=== PATIENT | female | born 1980 | race Asian ===

== ENCOUNTER 2019-02-07 06:44 | Emergency (ER) | payer BC ==
--- NOTE | 2019-02-07 09:29 | ER Document Report ---
ED General - General Chief Complaint: Leg Pain Stated Complaint: BILATERAL CALF PAIN Time Seen by Provider: 02/07/19 09:13 TRAVEL OUTSIDE OF THE [place] IN LAST 30 DAYS: No - HPI Notes: Patient is a 38-year-old female no significant past medical history who presents complaining of right worse than left calf pain after being on a plane for 18 hours and arriving last night at 10 PM. Patient states that she was fairly active during her vacation. Patient has noticed her right leg being a little more swollen than the left as well. Pain does not radiate. Denies drug allergies. She is able to eat and drink without difficulty. She is urinating normally. No recent illness. No known insect bite. Denies any headache, fever, neck pain, URI, sore throat, chest pain, palpitations, syncope, cough, shortness of breath, wheeze, dyspnea, abdominal pain, nausea/vomiting/diarrhea, urinary retention, dysuria, hematuria, loss of control of bowel or bladder, numbness/tingling, saddle anesthesia, muscle paralysis/weakness, or rash. Denies any recent surgery/trauma, personal cancer history, hormone use, smoking, or previous DVT/PE. - Related Data Allergies/Adverse Reactions: No Known Allergies Allergy (Verified 02/16/17 14:16) Home Medications: doxycycline 100 mg qday; multivit, flonase, claritin Past Medical History - Social History Smoking Status: Never Smoker Family History: Reviewed & Not Pertinent Patient has suicidal ideation: No Patient has homicidal ideation: No - Past Medical History Cardiac Medical History: Denies: Hx Coronary Artery Disease, Hx Heart Attack, Hx Hypertension Pulmonary Medical History: Denies: Hx Asthma, Hx Bronchitis, Hx COPD, Hx Pneumonia Neurological Medical History: Denies: Hx Cerebrovascular Accident, Hx Seizures Renal/ Medical History: Denies: Hx Peritoneal Dialysis Musculoskeletal Medical History: Denies Hx Arthritis Past Surgical History: Reports: Hx Section, Hx Oral Surgery - Oral/Facial, Hx Orthopedic Surgery - Right arm - Immunizations Hx Diphtheria, Pertussis, Tetanus Vaccination: Yes Review of Systems - Review of Systems -: Yes All other systems reviewed and negative Physical Exam - Vital signs Vitals: Temp Pulse Resp BP Pulse Ox 99.4 F 90 16 135/74 H 100 02/07/19 06:52 02/07/19 06:52 02/07/19 06:52 02/07/19 06:52 02/07/19 06:52 - Notes Notes: PHYSICAL EXAMINATION: GENERAL: Well-appearing, well-nourished and in no acute distress. LUNGS: Breath sounds clear to auscultation bilaterally and equal. No wheezes rales or rhonchi. HEART: Regular rate and rhythm without murmurs, rubs, gallops. ABDOMEN: Soft, nontender, nondistended abdomen. No guarding, no rebound. Normal bowel sounds present. No CVA tenderness bilaterally. Musculoskeletal: FROM to passive/active. Strength 5+/5. Extremities: No cyanosis, clubbing, or edema b/l. Peripheral pulses 2+. Capillary refill less than 3 seconds. + b/l calf pain with the R>L. The Rt calf is also larger than the left. NEUROLOGICAL: Normal speech, normal gait. Normal sensory, motor exams PSYCH: Normal mood, normal affect. SKIN: Warm, Dry, normal turgor, no rashes or lesions noted. Course - Re-evaluation Re-evalutation: 02/07/19 09:29 We will check a b/l venous doppler but the R>L. 02/07/19 10:33 Patient is an afebrile, well-hydrated, 38-year-old female who presents to the ED with bilateral lower leg pain, suspect inflammatory. Vitals are acceptable without any significant tachycardia, tachypnea, or hypoxia. PE is otherwise unremarkable for any neurovascular compromise, obvious tendon/ligament rupture, obvious fracture/dislocation, septic joint. Doppler was unremarkable for any acute pathology unofficially and awaiting formal report but pt would like to be called if any changes in results in lieu of waiting. Pt declined crutches. Patient is nontoxic-appearing. Patient is able to ambulate and weight-bear although she is limping. No other labs or imaging warranted at this time based on H&P. Conservative measures otherwise for symptoms. Recheck with your PCM in 3-5 days. Consider consult orthopedics. Return to the ED with any worsening/concerning symptoms otherwise as reviewed in discharge. Patient is in agreement. - Vital Signs Vital signs: Temp Pulse Resp BP Pulse Ox 99.4 F 90 16 135/74 H 100 02/07/19 06:52 02/07/19 06:52 02/07/19 06:52 02/07/19 06:52 02/07/19 06:52 Discharge - Discharge Clinical Impression: Bilateral leg pain Condition: Stable Disposition: HOME, SELF-CARE Additional Instructions: Rest, Ice, Compression, Elevation Tylenol/ibuprofen as needed Light stretches daily Strength exercises as able Moist heat and massage may help F/u with your PCP in 3-5 days for a recheck Consider consult(s) with Orthopedics/physical therapy for ongoing/worsening symptoms Return to the ED with any worsening symptoms and/or development of fever, headache, chest pain, palpitations, syncope, shortness of breath, trouble breathing, abdominal pain, n/v/d, muscle weakness/paralysis, numbness/tingling, swelling, redness, or other worsening symptoms that are concerning to you. Prescriptions: Naproxen 500 mg PO BID #14 tablet Forms: Elevated Blood Pressure Referrals: [facility] ([facility]) [Provider Group] - Follow up as needed
[2019-02-07] MEDS ORDERED: IBUPROFEN 600 MG TABLET PO ONE (10:34)
[2019-02-07 10:47] VITALS: BP 126/68
--- NOTE | 2019-02-07 15:36 | VASCULAR PRELIM REPORT ---
Provider Note Provider Note: Study negative for deep venous thrombosis in the bilateral lower extremities. No significant abnormality seen on ultrasound.
--- NOTE | 2019-02-08 10:36 | XCELERA REPORT ---
[address] [facility] [address] Lower Extremity Venous Evaluation Procedure: Color flow and duplex imaging bilaterally of the veins of the lower extremities as well as the Common Femoral veins. Right Sided Venous Evaluation Normal vessel filling wall to wall, compression and augmentation as well as Colour flow down to the infrageniculate veins. Left Sided Venous Evaluation Normal vessel filling wall to wall, compression and augmentation as well as Colour flow down to the infrageniculate veins. Interpretation Summary No duplex evidence of DVT or obstruction in the bilateral lower extremities. Name: CARMEN URIBE Age: 38 yrs Gender: Female : 1980 Patient Status: Emergency Patient Location: ER Study Date: 02/07/2019 10:09 AM Reason For Study: b/l calf pain R>L, prolonged plane ride Ordering Physician: USAMA LUNA Performed By: Elaine Grey : USAMA LUNA > Darrick Castro
== END 2019-02-07 10:45 | disposition home or self-care (01) ==
LOC: ER 06:44
DX: M79.604 Pain in right leg (principal); M79.605 Pain in left leg
CPT/HCPCS: 93970; 99283